=== PATIENT | male | born 1970 | race Caucasian/White ===

== ENCOUNTER 2021-05-03 09:10 | Emergency (ER) | payer BC ==
--- NOTE | 2021-05-03 09:48 | EDM.PDOC ---
ED HPI GENERAL MEDICAL PROBLEM - General Chief Complaint: Lower Extremity Injury/Pain Stated Complaint: R FOOT INJURY Time Seen by Provider: 05/03/21 09:46 Source of Information: Reports: Patient, Family History Limitations: Reports: No Limitations - History of Present Illness INITIAL COMMENTS - FREE TEXT/NARRATIVE: 51-year-old male who injured his right foot last night while running around. He had a fracture in November of the fifth metatarsal on the right foot, it healed without surgery and he was not having any problems with it but now he developed pain in the area of the fracture and is concerned he may have reinjured the old fracture. He has pain over the distal aspect of the metatarsal and pain with weightbearing. No significant swelling or bruising, no other injury. Onset: Sudden Duration: Hour(s): (12 hours ago) Location: Reports: Lower Extremity, Right Associated Symptoms: Reports: No Other Symptoms - Related Data Allergies Allergy/AdvReac Type Severity Reaction Status Date / Time Penicillins Allergy Airway Verified 05/03/21 09:35 Tightness Home Meds: Home Meds atorvaSTATin [Lipitor] 20 mg PO BEDTIME 05/03/21 [History] lisinopriL [Lisinopril] 30 mg PO BEDTIME 05/03/21 [History] Past Medical History Cardiovascular History: Reports: High Cholesterol, Hypertension Musculoskeletal History: Reports: Fracture - Past Surgical History Other Musculoskeletal Surgeries/Procedures:: back surgery Social & Family History - Tobacco Use Tobacco Use Status *Q: Never Tobacco User Review of Systems - Review of Systems Review Of Systems: See Below Constitutional: Denies: Fever Respiratory: Reports: No Symptoms Cardiovascular: Reports: No Symptoms Skin: Denies: Bruising, Erythema Neurological: Denies: Paresthesia Psychiatric: Reports: No Symptoms ED EXAM, GENERAL - Physical Exam Exam: See Below Exam Limited By: No Limitations General Appearance: Alert, No Apparent Distress Head: Atraumatic Respiratory/Chest: No Respiratory Distress Cardiovascular: Regular Rate, Rhythm Extremities: Other (Exam is otherwise limited to the right lower extremity. He has tenderness to palpation over the distal fifth metatarsal, but no crepitus, deformity or bruising) Neurological: Alert, Oriented, No Motor/Sensory Deficits Psychiatric: Normal Affect, Normal Mood Skin Exam: Warm, Dry, Other (No bruising or erythema over the injured area) Course - Vital Signs Last Recorded V/S: Last Vital Signs Temp 97.8 F 07/27/21 09:47 Pulse 76 05/03/21 09:47 Resp 15 05/03/21 09:47 BP 144/88 H 05/03/21 09:47 Pulse Ox 99 05/03/21 09:47 - Orders/Labs/Meds Orders: Active Orders 24 hr Category Date Time Status DME for Discharge [COMM] Stat Oth 05/03/21 10:17 Ordered - Re-Assessments/Exams Free Text/Narrative Re-Assessment/Exam: 05/03/21 09:48 A right foot x-ray was obtained. 05/03/21 11:12 X-ray shows a slight opening of a Torre fracture which appears to be healed. The opening is unknown if it is an acute injury on a chronic fracture. Patient was placed in a walking boot, was given a copy of his x-ray and will be rechecked when he gets home in 6 days. Departure - Departure Time of Disposition: 10:41 Disposition: Home, Self-Care 01 Clinical Impression: Sprain of right foot Qualifiers: Encounter type: initial encounter Qualified Code(s): S93.601A - Unspecified sprain of right foot, initial encounter - Discharge Information Instructions: Foot Sprain Referrals: PCP,None [Primary Care Provider] - Forms: ED Department Discharge Care Plan Goals: Wear walking boot when bearing weight, and recheck with your orthopedic provider when you get home and take your copies of your x-rays with you to your recheck. Elevate the foot when able, ibuprofen or naproxen should help. Sepsis Event Note (ED) - Focused Exam Vital Signs: Vital Signs Temp Pulse Resp BP Pulse Ox 05/03/21 09:47 97.8 F 76 15 144/88 H 99 05/03/21 09:42 97.8 F 76 15 144/88 H 99 - My Orders Last 24 Hours: My Active Orders 05/03/21 10:17 DME for Discharge [COMM] Stat - Assessment/Plan Last 24 Hours: My Active Orders 05/03/21 10:17 DME for Discharge [COMM] Stat
--- NOTE | 2021-05-03 10:39 | CRLCR ---
For Patients: As a result of the Cures Act, medical imaging exams and procedure reports are released immediately into your electronic medical record. You may view this report before your referring provider. If you have questions, please contact your health care provider. Indication: Injury, broken foot Comparison: None available. Technique: AP, Lateral, and Oblique views right foot were obtained Findings: There is demonstration of a somewhat chronic partially nonunion fracture at the base of the 5th metatarsal with minimal healing bony callus and persistent lucency. There is no evidence of new, acute injury identified. There are hammertoe deformities of the 2nd through 5th digits appreciated. There is moderate soft tissue swelling adjacent to the 5th metatarsophalangeal joint. 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 Mild soft tissue swelling is appreciated at the lateral aspect of the 5th metatarsophalangeal joint. Dictated by Gómez Cruz MD @ 05/03/2021 10:37:[address] Gómez Cruz @ May 03 2021 10:37AM
== END 2021-05-03 10:41 | disposition home or self-care (01) ==
LOC: JP.ED 09:10
DX: S93.601A Unspecified sprain of right foot, initial encounter (principal); E78.00 Pure hypercholesterolemia, unspecified; I10 Essential (primary) hypertension; Z88.0 Allergy status to penicillin; Z79.899 Other long term (current) drug therapy; X58.XXXA Exposure to other specified factors, initial encounter; Y93.02 Activity, running
CPT/HCPCS: 73630-RT; 99283-25